=== PATIENT | female | born 1995 | race Caucasian/White ===

== ENCOUNTER 2017-03-25 11:43 | Emergency (ER) | payer BC ==
[~2017-03-25] VITALS: Ht 149.9 cm; Wt 43.6 kg
[2017-03-25] MEDS ORDERED: ONDANSETRON HCL INJ 2 MG/ML VIAL IV STA (13:02)
[2017-03-25] MEDS ORDERED: SODIUM CHLORIDE 0.9% 1000ML 1,000 ML IV SCH (13:15)
[2017-03-25] MEDS ORDERED: DICYCLOMINE HCL 20 MG TAB PO ONE (13:15)
[2017-03-25] MEDS ORDERED: ZOFRAN ODT4 MG PO (16:31)
[2017-03-25] MEDS ORDERED: DICYCLOMINE HCL20 MG PO (16:33)
[2017-03-25 16:55] VITALS: BP 117/71
== END 2017-03-25 16:45 | disposition home or self-care (01) ==
LOC: FSED 11:43
DX: R10.31 Right lower quadrant pain (principal); R11.2 Nausea with vomiting, unspecified; E86.0 Dehydration; A08.4 Viral intestinal infection, unspecified; F17.210 Nicotine dependence, cigarettes, uncomplicated
CPT/HCPCS: 72191; 74174; 74175; 80048; 80053; 81025; 85025; 99283; J2405

== ENCOUNTER 2017-09-26 08:39 | Emergency (ER) | payer BC ==
[~2017-09-26] VITALS: Ht 149.9 cm; Wt 44.9 kg
[~2017-09-26 08:39] MED LIST: DICYCLOMINE HCL20 MG PO; ZOFRAN ODT4 MG PO
[2017-09-26] MEDS ORDERED: KETOROLAC TROMETHAMINE 30 MG/ML VIAL IV STA (08:55)
[2017-09-26] MEDS ORDERED: SODIUM CHLORIDE 0.9% 1000ML 1,000 ML IV SCH (09:00)
[2017-09-26] MEDS ORDERED: IOPAMIDOL 300MG/ML 100 ML INFUS..BTL IV ONE (11:15)
[2017-09-26 12:16] VITALS: BP 107/69
== END 2017-09-26 12:15 | disposition home or self-care (01) ==
LOC: FSED 08:39
DX: R10.11 Right upper quadrant pain (principal); K29.00 Acute gastritis without bleeding
CPT/HCPCS: 74177; 76705; 80053; 81003; 81025; 85025; 99284; J1885; J7030; Q9967